=== PATIENT | male | born 1985 | race African-American/Black ===

== ENCOUNTER 2016-07-01 15:35 | Emergency (ER) | payer MEDICAID ==
[~2016-07-01] VITALS: Ht 182.9 cm; Wt 79.4 kg
[2016-07-01] MEDS ORDERED: MECLIZINE HCL 12.5 MG TABLET PO ONE (16:00)
[2016-07-01] MEDS ORDERED: MECLIZINE HCL 25 MG TABLET ONE (16:04)
[2016-07-01 17:40] VITALS: BP 119/68
== END 2016-07-01 17:41 | disposition home or self-care (01) ==
LOC: ER 15:41
DX: R42 Dizziness and giddiness (principal); F10.20 Alcohol dependence, uncomplicated; F17.210 Nicotine dependence, cigarettes, uncomplicated
CPT/HCPCS: 70450; 99284; A4606; J8597; Z7610

== ENCOUNTER 2017-02-24 10:27 | Emergency (ER) | payer MEDICAID ==
[~2017-02-24] VITALS: Ht 180.3 cm; Wt 90.3 kg
[2017-02-24 10:27] VITALS: BP 142/76
== END 2017-02-24 14:29 | disposition home or self-care (01) ==
LOC: ER 10:28
DX: S61.214D Laceration without foreign body of right ring finger without damage to nail, subsequent encounter (principal); F17.200 Nicotine dependence, unspecified, uncomplicated
CPT/HCPCS: A4606; Z7502; Z7610